=== PATIENT | female | born 1970 | race Asian ===

== ENCOUNTER 2017-09-08 19:19 | Emergency (ER) | payer OTHER ==
[2017-09-08 20:34] LABS: BASOPHIL % 0.8 % (0-2); PLATELET COUNT 350 x10^3mcL (130-400); RED CELL DISTRIBUTION WIDTH 13.5 % (11.5-14.5)
[2017-09-08 20:36] LABS: CALCIUM 8.6 mg/dL (8.5-10.1); CARBON DIOXIDE 30.8 mmol/L (21-32); CHLORIDE SERUM 106 mmol/L (98-107); CREATININE SERUM 0.6 mg/dL (0.6-1.0); GFR1 > 60 mL/min; GLUCOSE SERUM 95 mg/dL (74-106); POTASSIUM SERUM 3.2 mmol/L (3.5-5.1); SODIUM SERUM 141 mmol/L (136-145)
[2017-09-08 20:40] LABS: ALBUMIN 3.4 g/dL (3.4-5.0); ALKALINE PHOSPHATASE 60 U/L (46-116); ALT/SGPT 19 U/L (14-59); AST/SGOT 19 U/L (15-37); BILIRUBIN TOTAL 0.2 mg/dL (0.20-1.00); LIPASE 181 IU/L (73-393); TOTAL PROTEIN, SERUM 7.7 g/dL (6.4-8.2)
[2017-09-08 20:55] LABS: microscopic required? YES; urine erythrocyte 2+ (NEGATIVE)
[2017-09-08 22:25] VITALS: BP 113/75
== END 2017-09-08 22:15 | disposition home or self-care (01) ==
LOC: ED 19:19
PROVIDERS: Emergency Medicine
DX: E87.6 Hypokalemia (principal); R07.89 Other chest pain
CPT/HCPCS: J1885; J7030

== ENCOUNTER 2017-11-07 19:21 | Emergency (ER) | payer OTHER ==
[~2017-11-07] VITALS: Ht 152.4 cm; Wt 45.8 kg
[2017-11-07 19:26] VITALS: Ht 152.4 cm; Wt 45.8 kg
[2017-11-07 21:25] LABS: CARBON DIOXIDE 32.3 mmol/L (21-32); CHLORIDE SERUM 106 mmol/L (98-107); CREATININE SERUM 0.5 mg/dL (0.6-1.0); GFR1 > 60 mL/min; GLUCOSE SERUM 84 mg/dL (74-106); POTASSIUM SERUM 3.9 mmol/L (3.5-5.1); SODIUM SERUM 143 mmol/L (136-145)
[2017-11-07 21:30] LABS: BASOPHIL % 0.7 % (0-2); PLATELET COUNT 321 x10^3mcL (130-400)
[2017-11-07 21:31] LABS: ALBUMIN 3.4 g/dL (3.4-5.0); ALKALINE PHOSPHATASE 55 U/L (46-116); ALT/SGPT 18 U/L (14-59); AST/SGOT 19 U/L (15-37); TOTAL PROTEIN, SERUM 7.5 g/dL (6.4-8.2)
[2017-11-08 00:14] LABS: FREE T4 0.99 ng/dL (0.76-1.46)
[2017-11-08 01:26] VITALS: BP 112/70
== END 2017-11-08 01:26 | disposition home or self-care (01) ==
LOC: ED 19:21
PROVIDERS: Emergency Medicine
DX: R42 Dizziness and giddiness (principal); R53.1 Weakness; R53.83 Other fatigue
CPT/HCPCS: 84439; J7030; J8597

== ENCOUNTER 2018-12-01 21:11 | Emergency (ER) | payer OTHER ==
[~2018-12-01] VITALS: Ht 157.5 cm; Wt 44.0 kg
[2018-12-01 21:23] VITALS: Ht 157.5 cm; Wt 44.0 kg
[2018-12-01 21:51] LABS: BASOPHIL % 0.6 % (0-2); PLATELET COUNT 340 x10^3mcL (130-400); RED CELL DISTRIBUTION WIDTH 13.6 % (11.5-14.5)
[2018-12-01 23:13] VITALS: BP 112/63
== END 2018-12-01 23:13 | disposition home or self-care (01) ==
LOC: ED 21:11
PROVIDERS: Emergency Medicine
DX: N93.8 Other specified abnormal uterine and vaginal bleeding (principal); Z98.890 Other specified postprocedural states
CPT/HCPCS: 36415